=== PATIENT | female | born 1990 | race Two or more races ===

== ENCOUNTER 2025-04-06 15:54 | Emergency (ER) | payer OTHER ==
[~2025-04-06] VITALS: Ht 152.4 cm; Wt 105.2 kg
[2025-04-06] MEDS: PROCHLORPERAZINE EDISYLATE 10 MG/2 ML VIAL IVP ONE (16:30)
[2025-04-06] MEDS: IV NS 0.9% 1,000 ML BAG IV ONE (16:30)
[2025-04-06] MEDS ORDERED: PROCHLORPERAZINE EDISYLATE 10 MG/2 ML VIAL ONE (16:35)
[2025-04-06] MEDS ORDERED: IV NS 0.9% 250 ML IV ONE (16:47)
[2025-04-06] MEDS ORDERED: CT SWABBABLE VALVE TRANS SET 1 EA INFUS.SET MC ONE (16:47)
[2025-04-06] MEDS ORDERED: IOHEXOL-350 100 ML VIAL IV ONE (16:47)
[2025-04-06 17:00] LABS: CALCIUM, SERUM 9.0 mg/dL (8.5-10.1); CREATININE 0.7 mg/dL (0.6-1.3); SODIUM SERUM 143.0 mmol/L (136-145); UREA NITROGEN, BLOOD 13.0 mg/dL (7-18)
[2025-04-06 17:09] LABS: INR 0.98 (0.91-1.10)
[2025-04-06] MEDS ORDERED: HYDROMORPHONE 1 MG/1 ML DISP.SYRIN ONE (17:25)
[2025-04-06] MEDS: HYDROMORPHONE 1 MG/1 ML DISP.SYRIN IV ONE (17:25)
[2025-04-06 17:26] LABS: PLATELET COUNT (AUTO) 472 K/uL (150-450); RED BLOOD CELL COUNT(AUTO) 4.88 MIL/uL (4.0-5.2); RED CELL DISTRIBUTION WIDTH 13.6 % (11.5-15.0); WHITE BLOOD COUNT (AUTO) 13.9 K/uL (4.3-11.0)
[2025-04-06 18:32] VITALS: BP 150/69; TEMP 98.3; O2SAT 99
== END 2025-04-06 18:33 | disposition home or self-care (01) ==
LOC: ER 15:59
DX: R51.9 Headache, unspecified (principal); D69.1 Qualitative platelet defects; Z88.2 Allergy status to sulfonamides; Z86.73 Personal history of transient ischemic attack (TIA), and cerebral infarction without residual deficits
CPT/HCPCS: 99285; 70498; 96374; 96375; 71045; 96361; 93005; 70496; 85025; 80048; 36415; 85730; 84702; J0780; J1200; J7030; J7050; Q9967; J1171